=== PATIENT | male | born 1980 | race Caucasian/White ===

== ENCOUNTER 2019-07-01 16:34 | Observation (INO) | payer BC ==
[2019-07-01] MEDS ORDERED: Sodium Chloride 0.9% 1,000 ML IV ONE (16:47)
[2019-07-01] MEDS ORDERED: Sodium Chloride 0.9% 2.5 ML Syringe FLUSH PRN (16:47)
[2019-07-01] MEDS ORDERED: Sodium Chloride 0.9% 10 ML Syringe FLUSH PRN (16:47)
--- NOTE | 2019-07-01 16:50 | EDM.PDOC ---
ED HPI GENERAL MEDICAL PROBLEM - General Chief Complaint: Chest Pain Stated Complaint: CHEST PAIN Time Seen by Provider: 07/01/19 16:40 - History of Present Illness INITIAL COMMENTS - FREE TEXT/NARRATIVE: 38-year-old male with history of hypertension presents of left-sided pleuritic, sharp, severe chest pain 1 hour prior to arrival. Symptoms presented after he was eating lunch. Associated with shortness of breath, palpitation. His dyspnea is worse when laying flat, and is improved sitting up. Denies nausea, vomiting, sweats. He took his blood pressure medication today. Chest pain is currently rated 10/10. He is scheduled for a sleep study for possible sleep apnea in June. ROS: A 10-point review of systems, other than pertinent positives and negatives as stated per HPI, is otherwise negative PHYSICAL EXAM General: AOx4, GCS = 15, moderate distress HEENT: dry mucous membrane Neck: supple, no meningismus, no Kernig or Brudzinski Cardiac: S1S2 RRR Respiratory: CTAB, no crackles or rales, no wheezing Abdomen: Soft, nontender, no rebound or guarding, nondistended, no pulsatile mass. Back: nontender Musculoskeletal: NVI distally, no deformity Neuro: No focal deficits, CN 2 - 12 WNL. MEDICAL DECISION MAKING: I reviewed the patients past medical records, lab and radiographic findings. I discussed the case with family members. My differential diagnosis included: Dissection, ACS, PE. Left Arm/Chest Pain Score (Numeric/FACES): 10 - Related Data Allergies Allergy/AdvReac Type Severity Reaction Status Date / Time No Known Allergies Allergy Verified 07/01/19 16:43 Home Meds: Home Meds Telmisartan 80 mg PO DAILY 07/01/19 [History] amLODIPine [Norvasc] 10 mg PO DAILY 07/01/19 [History] Past Medical History - Past Health History Medical/Surgical History: Denies Medical/Surgical History Cardiovascular History: Reports: Hypertension Social & Family History - Tobacco Use Smoking Status *Q: Former Smoker Used Tobacco, but Quit: Yes Month/Year Tobacco Last Used: 06/2019 - Caffeine Use Caffeine Use: Reports: Coffee - Recreational Drug Use Recreational Drug Use: No ED ROS GENERAL - Review of Systems Review Of Systems: See Below (see dictation) ED EXAM, GENERAL - Physical Exam Exam: See Below (see dictation) EKG INTERPRETATION EKG Date: 07/01/19 Time: 16:39 Rhythm: NSR Rate (Beats/Min): 83 [place]: Normal P-Wave: Present QRS: Normal ST-T: Normal QT: Normal EKG Interpretation Comments: no STEMI Course - Vital Signs Last Recorded V/S: Last Vital Signs Temp 96.4 F L 07/01/19 16:41 Pulse 85 07/01/19 16:50 Resp 19 07/01/19 16:41 BP 143/84 H 07/01/19 17:08 Pulse Ox 97 07/01/19 16:50 - Orders/Labs/Meds Orders: Active Orders 24 hr Category Date Time Status Cardiac Monitoring [RC] . DIRECTED Care 07/01/19 16:47 Active EKG 12 Lead [EKG Documentation Completion] [RC] STAT Care 07/01/19 17:33 Active EKG Documentation Completion [RC] STAT Care 07/01/19 16:48 Active Pulse Oximetry [RC] ASDIRECTED Care 07/01/19 16:47 Active B-TYPE NATRIURETIC PEPTIDE,BNP [CHEM] Stat Lab 07/01/19 18:30 Ordered Sodium Chloride 0.9% [Saline Flush] Med 07/01/19 16:47 Active 10 ml FLUSH ASDIRECTED PRN Sodium Chloride 0.9% [Saline Flush] Med 07/01/19 16:47 Active 2.5 ml FLUSH ASDIRECTED PRN Saline Lock Insert [OM.PC] Stat Oth 07/01/19 16:47 Ordered Medication Orders Sodium Chloride (Saline Flush) 10 ml FLUSH ASDIRECTED PRN PRN Reason: Keep Vein Open Sodium Chloride (Saline Flush) 2.5 ml FLUSH ASDIRECTED PRN PRN Reason: Keep Vein Open Labs: Laboratory Tests 07/01/19 07/01/19 07/01/19 Range/Units 16:43 16:43 16:43 WBC 8.12 (4.0-11.0) K/uL RBC 5.19 (4.50-5.90) M/uL Hgb 15.6 (13.0-17.0) g/dL Hct 45.0 (38.0-50.0) % MCV 86.7 (80.0-98.0) fL MCH 30.1 (27.0-32.0) pg MCHC 34.7 (31.0-37.0) g/dL RDW Std Deviation 43.2 (28.0-62.0) fl RDW Coeff of Angel 14 (11.0-15.0) % Plt Count 183 (150-400) K/uL MPV 10.50 (7.40-12.00) fL Neut % (Auto) 60.4 (48.0-80.0) % Lymph % (Auto) 27.6 (16.0-40.0) % [place] % (Auto) 8.5 (0.0-15.0) % Eos % (Auto) 3.0 (0.0-7.0) % Baso % (Auto) 0.5 (0.0-1.5) % Neut # (Auto) 4.9 (1.4-5.7) K/uL Lymph # (Auto) 2.2 (0.6-2.4) K/uL [place] # (Auto) 0.7 (0.0-0.8) K/uL Eos # (Auto) 0.2 (0.0-0.7) K/uL Baso # (Auto) 0.0 (0.0-0.1) K/uL Nucleated RBC % 0.0 /100WBC Nucleated RBCs # 0 K/uL INR 0.96 Sodium 137 (136-148) mmol/L Potassium 3.8 (3.5-5.1) mmol/L Chloride 101 (98-107) mmol/L Carbon Dioxide 26.9 (21.0-32.0) mmol/L BUN 21 H (7.0-18.0) mg/dL Creatinine 1.1 (0.8-1.3) mg/dL Est Cr Clr Drug Dosing 106.90 mL/min Estimated GFR (MDRD) > 60.0 ml/min Glucose 118 H (74-106) mg/dL Calcium 8.7 (8.5-10.1) mg/dL Total Bilirubin 0.8 (0.2-1.0) mg/dL AST 35 (15-37) IU/L ALT 71 H (14-63) IU/L Alkaline Phosphatase 64 (46-116) U/L Troponin I < 0.050 (0.000-0.056) ng/mL Total Protein 7.3 (6.4-8.2) g/dL Albumin 4.2 (3.4-5.0) g/dL Globulin 3.1 (2.6-4.0) g/dL Albumin/Globulin Ratio 1.4 (0.9-1.6) Meds: Medications Generic Name Dose Route Start Last Admin Trade Name Freq PRN Reason Stop Dose Admin Sodium Chloride 10 ml 07/01/19 16:47 Saline Flush FLUSH ASDIRECTED PRN Keep Vein Open Sodium Chloride 2.5 ml 07/01/19 16:47 Saline Flush FLUSH ASDIRECTED PRN Keep Vein Open Discontinued Medications Generic Name Dose Route Start Last Admin Trade Name Freq PRN Reason Stop Dose Admin Sodium Chloride 1,000 mls @ 999 mls/hr 07/01/19 16:47 07/01/19 16:54 Normal Saline IV 07/01/19 17:47 999 mls/hr BOLUS ONE Administration Iopamidol 100 ml 07/01/19 18:06 07/01/19 18:07 Isovue-370 (76%) IVPUSH 07/01/19 18:07 100 ml ONETIME ONE Administration Nitroglycerin 0.4 mg 07/01/19 16:47 07/01/19 17:08 Nitrostat SL 0.4 mg Q5M PRN Administration Chest Pain - Re-Assessments/Exams Free Text/Narrative Re-Assessment/Exam: 07/01/19 17:08 - Pain decreased down to 3/10 sublingual nitroglycerin. 07/01/19 17:39 -after 3 sublingual nitroglycerin, chest pain is down to 2/10, repeat EKG performed. Free Text/Narrative Re-Assessment/Exam: 07/01/19 17:39 Repeat EK bpm, NSR, normal QRS interval, no STEMI. EKG and rhythm strip interpreted by me at 1714 Free Text/Narrative Re-Assessment/Exam: 07/01/19 18:[address] Agee, who agrees to assume care at this point. The hospitalist's documentation supersedes all other documentation on this patient with regard to any conflicts or discrepancies from this point forward. Any emergency conditions have been treated to the ability of the ED prior to admission. Departure - Departure Time of Disposition: 18:34 Disposition: Refer to Observation Condition: Good Clinical Impression: Chest pain Instructions: Nonspecific Chest Pain, Adult, [id number] Forms: ED Department Discharge Sepsis Event Note - Evaluation Sepsis Screening Result: No Definite Risk - Focused Exam Vital Signs: Vital Signs Temp Pulse Resp BP BP Pulse Ox 07/01/19 17:08 143/84 H 07/01/19 17:03 145/87 H 07/01/19 16:57 162/93 H 07/01/19 16:50 85 165/101 H 97 07/01/19 16:41 96.4 F L 84 19 208/119 H 98 Date Exam was Performed: 07/01/19 Time Exam was Performed: 18:33 - My Orders Last 24 Hours: My Active Orders 07/01/19 16:47 Cardiac Monitoring [RC] . DIRECTED Pulse Oximetry [RC] ASDIRECTED Sodium Chloride 0.9% [Saline Flush] 10 ml FLUSH ASDIRECTED PRN Sodium Chloride 0.9% [Saline Flush] 2.5 ml FLUSH ASDIRECTED PRN Saline Lock Insert [OM.PC] Stat 07/01/19 16:48 EKG Documentation Completion [RC] STAT 07/01/19 17:33 EKG 12 Lead [EKG Documentation Completion] [RC] STAT 07/01/19 18:30 B-TYPE NATRIURETIC PEPTIDE,BNP [CHEM] Stat - Assessment/Plan Last 24 Hours: My Active Orders 07/01/19 16:47 Cardiac Monitoring [RC] . DIRECTED Pulse Oximetry [RC] ASDIRECTED Sodium Chloride 0.9% [Saline Flush] 10 ml FLUSH ASDIRECTED PRN Sodium Chloride 0.9% [Saline Flush] 2.5 ml FLUSH ASDIRECTED PRN Saline Lock Insert [OM.PC] Stat 07/01/19 16:48 EKG Documentation Completion [RC] STAT 07/01/19 17:33 EKG 12 Lead [EKG Documentation Completion] [RC] STAT 07/01/19 18:30 B-TYPE NATRIURETIC PEPTIDE,BNP [CHEM] Stat
[2019-07-01] MEDS: Nitroglycerin 0.4 MG Tab.SL SL PRN ×3 (16:57→17:08)
[2019-07-01 17:15] LABS: BLOOD UREA NITROGEN,BUN 21 mg/dL (7.0-18.0); CARBON DIOXIDE,CO2 26.9 mmol/L (21.0-32.0); CHLORIDE,CL 101 mmol/L (98-107); GLUCOSE RANDOM 118 mg/dL (74-106); POTASSIUM,K 3.8 mmol/L (3.5-5.1); SODIUM,NA 137 mmol/L (136-148)
--- NOTE | 2019-07-01 17:35 | CR ---
Chest: AP portable view of the chest was obtained. Comparison: No previous study. Heart size is slightly prominent which may relate to AP portable technique. Central lung markings are also increased which may relate to portable technique. Lungs otherwise are clear. Bony structures are unremarkable. Impression: 1. Findings as noted above presumably due to portable technique. 2. Nothing acute is otherwise seen. Diagnostic code #2 This report was dictated in MDT
[2019-07-01] MEDS ORDERED: Iopamidol 755 Mg/ML 100 ML Bottle IVPUSH ONE (18:06)
--- NOTE | 2019-07-01 18:24 | CT ---
CT chest Technique: Multiple axial sections through the chest were obtained. Intravenous contrast was utilized. Study has been performed as a pulmonary angiogram protocol. Comparison: Prior chest x-ray performed earlier on the same day (5:10 PM). Findings: Pulmonary arteries are not optimally opacified. No filling defects seen within the main or segmental branches. Smaller subsegmental pulmonary emboli could easily be missed. Aorta shows no aneurysm. No pericardial thickening is seen. Mediastinum and hilar region show no adenopathy. Visualized upper abdominal structures shows no discrete abnormality. Lungs are clear with no acute parenchymal change. No pleural effusions are seen. Bone window settings were reviewed which shows no acute osseous finding. Impression: 1. Suboptimal opacification of the pulmonary arteries. No findings of pulmonary embolism within the main or segmental branches. Smaller subsegmental pulmonary emboli could easily be missed. 2. Other portions of the CT study of the chest appear within normal limits. Nothing acute is identified. Diagnostic code #2 This report was dictated in MDT
[2019-07-01] MEDS ORDERED: Enoxaparin 40 MG/0.4 ML Syringe SUBCUT SCH (19:00)
[2019-07-01] MEDS ORDERED: Acetaminophen 325 MG Tab PO PRN (19:00)
[2019-07-01] MEDS ORDERED: Sodium Chloride 0.9% 1,000 ML IV SCH (19:00)
[2019-07-01] MEDS ORDERED: Ondansetron 4 MG/2 ML SDV IVPUSH PRN (19:00)
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
[2019-07-01] MEDS: Ketorolac 30 MG/ML SDV IVPUSH PRN (20:22)
--- NOTE | 2019-07-01 21:24 | CR ---
Chest: Portable view of the chest was obtained. Comparison: Prior chest x-ray performed earlier on the same day (5:10 PM) and chest CT study performed on the same day (5:58 PM) Findings: Heart is generous in size. Lungs are clear with no acute parenchymal change. Bony structures are grossly intact. Impression: 1. Generous heart size. Uncertain how much of this is relates to portable technique versus mild cardiomegaly. 2. Nothing acute is otherwise seen on portable chest x-ray. Diagnostic code #2 This report was dictated in MDT
[2019-07-01] MEDS ORDERED: Metoprolol Tartrate 50 MG Tab PO ONE (21:51)
[2019-07-02 03:27] LABS: BLOOD UREA NITROGEN,BUN 16 mg/dL (7.0-18.0); CARBON DIOXIDE,CO2 29.6 mmol/L (21.0-32.0); CHLORIDE,CL 103 mmol/L (98-107); GLUCOSE RANDOM 133 mg/dL (74-106); POTASSIUM,K 3.9 mmol/L (3.5-5.1); SODIUM,NA 140 mmol/L (136-148)
[2019-07-02] MEDS: Ketorolac 30 MG/ML SDV IVPUSH PRN (04:45)
--- NOTE | 2019-07-02 07:26 | PCM.DCSUM1 ---
Discharge Summary - Discharge Data Discharge Date: 07/02/19 Discharge Disposition: Home, Self-Care 01 Condition: Good - Referral to Home Health Primary Care Physician: Zamzam SUBRAMANIAN - Patient Summary/Data Hospital Course: 38 yo with pmh of HTN who presented with one day history of chest pain. He describes his the pain as sharp pressure of the left arm that radiates to the chest. He had associated symptoms of shortness of breath. Patient reported having a heated argument before the symptoms started. On admission he was noted to have a BP of 208/119, HR of 83. He was give SL nitro with resolution of his chest pain and improvement of his blood pressure. CT of the chest was negative for PE. EKG did not show any signs of ischemia. He was monitored overnight with out any events on telemetry. He ruled out for acute coronary syndrome with serial negative cardiac enzymes. He was started on metoprolol in addition to his home antihypertensive medications of amlodipine and telmisartan. He was referred to outpatient stress testing and is to follow up with Dr. Kaplan. - Discharge Plan Prescriptions/Med Rec: Metoprolol Succinate [Toprol XL 50mg] 50 mg PO DAILY #30 tab.er Home Medications: Home Meds Telmisartan 80 mg PO DAILY 07/01/19 [History] amLODIPine [Norvasc] 10 mg PO DAILY 07/01/19 [History] Metoprolol Succinate [Toprol XL 50mg] 50 mg PO DAILY #30 tab.er 07/02/19 [Rx] Patient Handouts: Metoprolol tablets, Nonspecific Chest Pain, Adult, Easy-to- Read Referrals: Zamzam SUBRAMANIAN [Primary Care Provider] - - Discharge Summary/Plan Comment DC Time >30 min.: No - Patient Data Vitals - Most Recent: Last Vital Signs Temp 37 C 07/02/19 04:00 Pulse 87 07/02/19 04:00 Resp 20 07/02/19 04:00 BP 159/94 H 07/02/19 04:00 Pulse Ox 95 07/02/19 04:00 Weight - Most Recent: 158 kg I&O - Last 24 hours: Intake & Output 07/01/19 07/02/19 07/02/19 22:59 06:59 14:59 Intake Total 500 1100 Balance 500 1100 Lab Results - Last 24 hrs: Laboratory Results - last 24 hr 07/01/19 07/01/19 07/01/19 Range/Units 16:43 16:43 16:43 WBC 8.12 (4.0-11.0) K/uL RBC 5.19 (4.50-5.90) M/uL Hgb 15.6 (13.0-17.0) g/dL Hct 45.0 (38.0-50.0) % MCV 86.7 (80.0-98.0) fL MCH 30.1 (27.0-32.0) pg MCHC 34.7 (31.0-37.0) g/dL RDW Std Deviation 43.2 (28.0-62.0) fl RDW Coeff of Angel 14 (11.0-15.0) % Plt Count 183 (150-400) K/uL MPV 10.50 (7.40-12.00) fL Neut % (Auto) 60.4 (48.0-80.0) % Lymph % (Auto) 27.6 (16.0-40.0) % [place] % (Auto) 8.5 (0.0-15.0) % Eos % (Auto) 3.0 (0.0-7.0) % Baso % (Auto) 0.5 (0.0-1.5) % Neut # (Auto) 4.9 (1.4-5.7) K/uL Lymph # (Auto) 2.2 (0.6-2.4) K/uL [place] # (Auto) 0.7 (0.0-0.8) K/uL Eos # (Auto) 0.2 (0.0-0.7) K/uL Baso # (Auto) 0.0 (0.0-0.1) K/uL Nucleated RBC % 0.0 /100WBC Nucleated RBCs # 0 K/uL INR 0.96 Sodium 137 (136-148) mmol/L Potassium 3.8 (3.5-5.1) mmol/L Chloride 101 (98-107) mmol/L Carbon Dioxide 26.9 (21.0-32.0) mmol/L BUN 21 H (7.0-18.0) mg/dL Creatinine 1.1 (0.8-1.3) mg/dL Est Cr Clr Drug Dosing 106.90 mL/min Estimated GFR (MDRD) > 60.0 ml/min Glucose 118 H (74-106) mg/dL Calcium 8.7 (8.5-10.1) mg/dL Total Bilirubin 0.8 (0.2-1.0) mg/dL AST 35 (15-37) IU/L ALT 71 H (14-63) IU/L Alkaline Phosphatase 64 (46-116) U/L Troponin I < 0.050 (0.000-0.056) ng/mL B-Natriuretic Peptide (<100) PG/ML Total Protein 7.3 (6.4-8.2) g/dL Albumin 4.2 (3.4-5.0) g/dL Globulin 3.1 (2.6-4.0) g/dL Albumin/Globulin Ratio 1.4 (0.9-1.6) 07/01/19 07/01/19 07/02/19 Range/Units 16:45 21:06 03:05 WBC 8.94 (4.0-11.0) K/uL RBC 4.82 (4.50-5.90) M/uL Hgb 13.9 (13.0-17.0) g/dL Hct 42.7 (38.0-50.0) % MCV 88.6 (80.0-98.0) fL MCH 28.8 (27.0-32.0) pg MCHC 32.6 (31.0-37.0) g/dL RDW Std Deviation 45.1 (28.0-62.0) fl RDW Coeff of Angel 14 (11.0-15.0) % Plt Count 131 L (150-400) K/uL MPV 10.40 (7.40-12.00) fL Neut % (Auto) 65.4 (48.0-80.0) % Lymph % (Auto) 25.2 (16.0-40.0) % [place] % (Auto) 7.3 (0.0-15.0) % Eos % (Auto) 1.8 (0.0-7.0) % Baso % (Auto) 0.3 (0.0-1.5) % Neut # (Auto) 5.9 H (1.4-5.7) K/uL Lymph # (Auto) 2.3 (0.6-2.4) K/uL [place] # (Auto) 0.7 (0.0-0.8) K/uL Eos # (Auto) 0.2 (0.0-0.7) K/uL Baso # (Auto) 0.0 (0.0-0.1) K/uL Nucleated RBC % 0.0 /100WBC Nucleated RBCs # 0 K/uL INR Sodium (136-148) mmol/L Potassium (3.5-5.1) mmol/L Chloride (98-107) mmol/L Carbon Dioxide (21.0-32.0) mmol/L BUN (7.0-18.0) mg/dL Creatinine (0.8-1.3) mg/dL Est Cr Clr Drug Dosing mL/min Estimated GFR (MDRD) ml/min Glucose (74-106) mg/dL Calcium (8.5-10.1) mg/dL Total Bilirubin (0.2-1.0) mg/dL AST (15-37) IU/L ALT (14-63) IU/L Alkaline Phosphatase (46-116) U/L Troponin I < 0.050 (0.000-0.056) ng/mL B-Natriuretic Peptide < 2 (<100) PG/ML Total Protein (6.4-8.2) g/dL Albumin (3.4-5.0) g/dL Globulin (2.6-4.0) g/dL Albumin/Globulin Ratio (0.9-1.6) 07/02/19 07/02/19 Range/Units 03:05 03:05 WBC (4.0-11.0) K/uL RBC (4.50-5.90) M/uL Hgb (13.0-17.0) g/dL Hct (38.0-50.0) % MCV (80.0-98.0) fL MCH (27.0-32.0) pg MCHC (31.0-37.0) g/dL RDW Std Deviation (28.0-62.0) fl RDW Coeff of Angel (11.0-15.0) % Plt Count (150-400) K/uL MPV (7.40-12.00) fL Neut % (Auto) (48.0-80.0) % Lymph % (Auto) (16.0-40.0) % [place] % (Auto) (0.0-15.0) % Eos % (Auto) (0.0-7.0) % Baso % (Auto) (0.0-1.5) % Neut # (Auto) (1.4-5.7) K/uL Lymph # (Auto) (0.6-2.4) K/uL [place] # (Auto) (0.0-0.8) K/uL Eos # (Auto) (0.0-0.7) K/uL Baso # (Auto) (0.0-0.1) K/uL Nucleated RBC % /100WBC Nucleated RBCs # K/uL INR Sodium 140 (136-148) mmol/L Potassium 3.9 (3.5-5.1) mmol/L Chloride 103 (98-107) mmol/L Carbon Dioxide 29.6 (21.0-32.0) mmol/L BUN 16 (7.0-18.0) mg/dL Creatinine 1.0 (0.8-1.3) mg/dL Est Cr Clr Drug Dosing 117.59 mL/min Estimated GFR (MDRD) > 60.0 ml/min Glucose 133 H (74-106) mg/dL Calcium 8.1 L (8.5-10.1) mg/dL Total Bilirubin (0.2-1.0) mg/dL AST (15-37) IU/L ALT (14-63) IU/L Alkaline Phosphatase (46-116) U/L Troponin I < 0.050 (0.000-0.056) ng/mL B-Natriuretic Peptide (<100) PG/ML Total Protein (6.4-8.2) g/dL Albumin (3.4-5.0) g/dL Globulin (2.6-4.0) g/dL Albumin/Globulin Ratio (0.9-1.6) Med Orders - Current: Current Medications Acetaminophen (Tylenol) 650 mg PO Q4H PRN PRN Reason: Pain/Fever Last Admin: 07/02/19 04:50 Dose: 650 mg Enoxaparin Sodium (Lovenox) 40 mg SUBCUT Q24H SIDDHARTH Last Admin: 07/01/19 20:11 Dose: 40 mg Sodium Chloride (Normal Saline) 1,000 mls @ 125 mls/hr IV ASDIRECTED SIDDHARTH Last Admin: 07/01/19 20:12 Dose: 125 mls/hr Ketorolac Tromethamine (Toradol) 30 mg IVPUSH Q6H PRN PRN Reason: Pain Stop: 07/06/19 19:00 Last Admin: 07/02/19 04:45 Dose: 30 mg Ondansetron HCl (Zofran) 4 mg IVPUSH Q4H PRN PRN Reason: Nausea/Vomiting Sodium Chloride (Saline Flush) 10 ml FLUSH ASDIRECTED PRN PRN Reason: Keep Vein Open Sodium Chloride (Saline Flush) 2.5 ml FLUSH ASDIRECTED PRN PRN Reason: Keep Vein Open Discontinued Medications Sodium Chloride (Normal Saline) 1,000 mls @ 999 mls/hr IV BOLUS ONE Stop: 07/01/19 17:47 Last Admin: 07/01/19 16:54 Dose: 999 mls/hr Iopamidol (Isovue-370 (76%)) 100 ml IVPUSH ONETIME ONE Stop: 07/01/19 18:07 Last Admin: 07/01/19 18:07 Dose: 100 ml Metoprolol Tartrate (Lopressor) 50 mg PO ONETIME ONE Stop: 07/01/19 21:52 Last Admin: 07/01/19 23:18 Dose: 50 mg Nitroglycerin (Nitrostat) 0.4 mg SL Q5M PRN PRN Reason: Chest Pain Last Admin: 07/01/19 17:08 Dose: 0.4 mg
== END 2019-07-02 10:25 | disposition home or self-care (01) ==
LOC: MW.ED 16:34 → MW.MS 18:34
PROVIDERS: ADMIT Internal Medicine; ATTEND Internal Medicine
DX: R07.81 Pleurodynia (principal); R06.02 Shortness of breath; I10 Essential (primary) hypertension; Z79.899 Other long term (current) drug therapy; Z87.891 Personal history of nicotine dependence; Z82.49 Family history of ischemic heart disease and other diseases of the circulatory system
CPT/HCPCS: 36415; 71045; 71275; 80048; 80053; 83880; 84484; 85025; 85610; 93005; 96361; 96372; 96374; 96376; 99285; A9270; G0378; J1650; J1885; J7030; Q9967; 96360; 99283